=== PATIENT | female | born 1980 | race Caucasian/White ===

== ENCOUNTER 2017-12-28 02:35 | Emergency (ER) | payer BC ==
[2017-12-28] MEDS ORDERED: diphenhydrAMINE 50 MG/ML VIAL ONE (02:51)
[2017-12-28] MEDS ORDERED: Metoclopramide HCl 10 MG/2 ML VIAL ONE (02:51)
== END 2017-12-28 04:57 | disposition home or self-care (01) ==
LOC: ERS 02:35
DX: G43.909 Migraine, unspecified, not intractable, without status migrainosus (principal); F32.9 Major depressive disorder, single episode, unspecified; Z79.899 Other long term (current) drug therapy
CPT/HCPCS: 96365; 96375; J1200; J2765

== ENCOUNTER 2019-06-27 22:46 | Inpatient (IN) | payer BC ==
[2019-06-27 23:20] VITALS: BMI 27.9
[2019-06-27] MEDS ORDERED: Lactated Ringer's 1,000 ML IV SCH (23:44)
[2019-06-27] MEDS ORDERED: Promethazine HCl 25 MG/ML VIAL IM PRN (23:44)
[2019-06-27] MEDS ORDERED: Ondansetron PF 4 MG/2 ML Vial IVP PRN (23:44)
[2019-06-27] MEDS ORDERED: Lactated Ringer's 1,000 ML IV PRN (23:45)
[2019-06-28 00:06] LABS: Hemoglobin 13.3 g/dL (12.0-16.0); Mean Corpuscular HGB CONC 33.9 g/dL (32.0-36.0); Mean Corpuscular Hemoglobin 30.8 pg (27.0-31.0); Platelet Count 169 thou/uL (130-400); RBC Distribution Width 16.8 % (11.5-14.5); White Blood Cell (WBC) Count 11.7 thou/uL (4.8-10.8)
[2019-06-28 00:47] LABS: HBSAg Index 0.18 S/CO (0-0.99); Hep B Surf Ag Non-Reactive S/CO (NonReactive); Syphilis Antibody Nonreactive (Nonreactive); Syphilis Antibody Index 0.05 S/CO (<1.00 Non-Reactive)
[2019-06-28] MEDS ORDERED: NS / Oxytocin 40 units/1000ml 1,000 ML ONE (01:10)
[2019-06-28] MEDS ORDERED: Lidocaine 1% (PF) 30 ML VIAL ONE (01:10)
--- NOTE | 2019-06-28 01:34 | PDOC.LDHP ---
Labor and Delivery H&P Chief complaint: contractions HPI: Contractions started last night. No LOF. Good movement. Getting stronger, longer, closer together. Current gestational age (weeks): 40 Due date: 06/23/19 Dating criteria: last menstrual period, first trimester ultrasound Grav: 4 Para: 3 Current complications: none Abnormal US findings: No Current medications: pre- vitamins Previous surgical history: low tranverse CS (With 3rd , done for abruption at 36 weeks) Allergies/Adverse Reactions: Allergies Allergy/AdvReac Type Severity Reaction Status Date / Time NSAIDS (Non-Steroidal Allergy Anaphylaxis Verified 06/27/19 23:14 Anti-Inflamma Social history: none - Physical Exam Vital signs reviewed and normal: yes General: NAD Heart: RRR Lungs: CTAB Abdomen: gravid Extremeties: no edema FHT: category 1 - Vaginal Exam cm dilated: 6 Effacement: 90% Station: -2 - OB Labs Blood type: O RH: positive Antibody Screen: negative HIV: negative RPR: negative HEPSAg: negative 1 hour GCT: negative GBS: negative Urine drug screen: not done Rubella: immune - Assessment L&D Assessment: term patient in labor - Plan Plan: admit to L&D, informed consent obtained, anesthesia consult for pain management
[2019-06-28] MEDS ORDERED: HYDROcodone/Acetaminophen 5/325 mg Tablet PO PRN ×2 (02:43→04:28)
[2019-06-28] MEDS ORDERED: Lidocaine 1% (PF) 30 ML VIAL SC PRN (02:43)
[2019-06-28] MEDS ORDERED: NS / Oxytocin 40 units/1000ml 1,000 ML IV PRN (02:43)
--- NOTE | 2019-06-28 02:47 | PDOC.OPDEL ---
OB Operative/Delivery Note Delivery Dr/Surgeon: Jalil Pre-Delivery Diagnosis: active labor (TOLAC) Procedure/Post Delivery Dx: spontaneous vaginal delivery (Head OA, no nuchal cord, mouth and nares bulb suctioned, shoulders and body easily followed) Weeks gestation: 40 Anesthesia: none - Findings A Sex: male - 1 min: 9 - 5 min: 9 - Additional Findings/Plan Placenta delivered: spontaneous (Large gush of blood prior to the placenta, pre- placental blood loss 800ml in the suction canister. Pitocin started in IV and placenta delivered intact. After the placenta there was about 400ml additional blood loss and clot. Uterine fundus firm after placenta delivered. Pitocin running.) Repaired Obstetrical Laceration: 1st degree (Midline perineal, repaired with 2.0 vicryl in standard running fashion) Estimated blood loss: 475 ml
[2019-06-28] MEDS ORDERED: Lanolin Ointment 7 GM TUBE TOP PRN (04:28)
[2019-06-28] MEDS ORDERED: Preparation H Ointment 28 GM TUBE PR PRN (04:28)
[2019-06-28] MEDS ORDERED: NS / Oxytocin 40 units/1000ml 1,000 ML IV SCH (04:28)
[2019-06-28] MEDS ORDERED: Bisacodyl 10 MG SUPP PR PRN (04:28)
[2019-06-28] MEDS ORDERED: Benzocaine-Menthol 82.5 ML CAN TOP PRN (04:28)
[2019-06-28] MEDS ORDERED: Milk Of Magnesia 30 ML UDCUP PO PRN (04:28)
[2019-06-28] MEDS ORDERED: hydrALAZINE 20 MG/ML VIAL SLOW IVP PRN (04:28)
[2019-06-28] MEDS: Ferrous Sulfate 325 MG TAB PO SCH ×2 (08:34→16:23)
[2019-06-28] MEDS ORDERED: Docusate Calcium (SURFAK) 240 MG CAP PO SCH (09:00)
[2019-06-28] MEDS ORDERED: Adacel (T-DAP) 0.5 ML SYRINGE IM ONE (09:00)
--- NOTE | 2019-06-28 17:29 | PDOC.PP ---
Post Progress Note Post Day #: 0 Subjective: of 4th baby 13 hours ago, has been successfully, has been up to the bathroom and feels well. Requesting early discharge. PO intake tolerated: yes Flatus: yes Ambulation: yes Vital Signs (12 hours) Temp Pulse Resp BP Pulse Ox 06/28/19 11:29 98.6 F 85 20 102/63 06/28/19 08:10 81 20 102/64 06/28/19 07:30 97 06/28/19 06:55 98.5 F 86 20 109/70 97 06/28/19 05:35 98.5 F 93 18 126/60 99 Weight Weight 173 lb - Physical Examination General: NAD Cardiovascular: no m/r/g Respiratory: clear to auscultation bilaterally Abdominal: + bowel sounds, lochia (Normal) Extremities: negative homans (B) Neurological: no gross focal deficits Psychiatric: A&Ox3 Result Diagrams: 06/27/19 23:53 Additional Labs: Post Labs Blood Type O POSITIVE 06/27/19 23:53 Hep Bs Antigen Non-Reactive S/CO (NonReactive) 06/27/19 23:53 (1) Vaginal delivery following previous section, delivered Code(s): O34.219 - MATERNAL CARE FOR UNSP TYPE SCAR FROM PREVIOUS DEL Status: Acute (2) hemorrhage Code(s): O72.1 - OTHER IMMEDIATE HEMORRHAGE Status: Acute Qualifiers: hemorrhage type: third-stage Qualified Code(s): O72.0 - Third- stage hemorrhage (3) Vaginal delivery Code(s): O80 - ENCOUNTER FOR FULL-TERM UNCOMPLICATED DELIVERY Status: Acute - Assessment/Plan day #0 Currently 13 hours post delivery Complicated by immediate hemorrhage that resolved with pitocin Requesting early discharge Has done well Ambulating without any symptoms of anemia/acute blood loss Await H/H ordered stat well - no issues and experienced mom Agree with early discharge if H/H OK - has follow up already scheduled with me tomorrow for mom and baby
[2019-06-28 17:44] LABS: Hemoglobin 10.8 g/dL (12.0-16.0)
[2019-06-28 17:54] VITALS: BP 107/71; TEMP 98.1
== END 2019-06-28 18:30 | disposition home or self-care (01) | DRG 806 ==
LOC: L&D/OP 22:46 → L&D 23:42 → 3SW 06-28 06:13
PROVIDERS: ADMIT Family Medicine; ATTEND Family Medicine
PROC: 10E0XZZ Delivery of Products of Conception, External Approach (ICD-10-PCS; principal; 2019-06-28)
PROC: 0HQ9XZZ Repair Perineum Skin, External Approach (ICD-10-PCS; 2019-06-28)
DX: O34.211 Maternal care for low transverse scar from previous cesarean delivery (principal); O72.0 Third-stage hemorrhage; Z37.0 Single live birth; Z3A.40 40 weeks gestation of pregnancy; Z88.8 Allergy status to other drugs, medicaments and biological substances; O70.0 First degree perineal laceration during delivery
CPT/HCPCS: 36415; 85014; 85018; 85027; 86780; 86850; 86900; 86901; 87340; 99285; J2001